=== PATIENT | male | born 1995 | race Caucasian/White ===

== ENCOUNTER → 2024-06-23 07:54 | Outpatient (REF) | payer OTHER, SELFPAY | LOC: HWRCS 07:54 | PROVIDERS: ATTENDING PHYSICIAN Nurse Practitioner Family | DX: R42 Dizziness and giddiness (principal) | CPT/HCPCS: 93306 ==

== ENCOUNTER → 2024-06-24 12:44 | Outpatient (REF) | payer OTHER, SELFPAY | LOC: RCS 12:44 | PROVIDERS: ATTENDING PHYSICIAN Nurse Practitioner Family | DX: R42 Dizziness and giddiness (principal) | CPT/HCPCS: 93225; 93226 ==

== ENCOUNTER → 2024-06-30 10:16 | Outpatient (REF) | payer OTHER, SELFPAY | LOC: MRI 10:16 | PROVIDERS: ATTENDING PHYSICIAN Nurse Practitioner Family | DX: R42 Dizziness and giddiness (principal) | CPT/HCPCS: 70553; A9575 ==

== ENCOUNTER → 2025-01-20 17:57 | Outpatient (REF) | payer OTHER, SELFPAY | LOC: MRI 17:57 | PROVIDERS: ATTENDING PHYSICIAN Nurse Practitioner Family | DX: R90.89 Other abnormal findings on diagnostic imaging of central nervous system (principal); R42 Dizziness and giddiness | CPT/HCPCS: 70553; A9575 ==